=== PATIENT | male | born 1990 | race Caucasian/White ===

== ENCOUNTER 2021-09-11 20:31 | Emergency (ER) | payer OTHER, SELFPAY ==
[2021-09-11 20:40] VITALS: BP 135/80; PULSE 78; RESP 18; TEMP 37.2; O2SAT 97
--- NOTE | 2021-09-11 20:43 | DI.RAD.S_ITS ---
PROCEDURE: XR HAND RT MIN 3V INDICATIONS: pain, no known injury TECHNIQUE: 3 views of the hand(s) acquired. COMPARISON: None. FINDINGS: Bones: No acute fractures or dislocations. There is mild deformity of the 5th distal phalanx consistent sequelae of prior trauma. Carpal bones are normally aligned. No suspicious bony lesions. Soft tissues: No suspicious soft tissue calcifications. IMPRESSION: 1. No acute fracture or dislocation. Dictated by: Jaime Roberts M.D. on 09/11/2021 at 21:55 Approved by: Jaime Roberts M.D. on 09/11/2021 at 21:56
--- NOTE | 2021-09-11 22:10 | ED_ITS ---
HPI - Extremity Injury (Upper) General Chief Complaint: Extremity Injury, Upper Stated Complaint: Right hand pain Time Seen by Provider: 09/11/21 21:48 Source: patient Mode of arrival: Ambulatory History of Present Illness HPI narrative: 31-year-old male nonsmoker with a history of traumatic injury to his right hand resulting in nerve injury when he was a child presents with the chief complaint of some pain in his right wrist in the absence of any obvious injury. He works with repetitive motion of his right hand and wrist and denies any history of carpal tunnel or other. He has no numbness, tingling or weakness. His pain is worse with range of motion and improves with rest. Review of Systems Review of Systems Narrative: GENERAL: Denies chills, fatigue, malaise, fever, sweats. HEENT: Denies sinus pain, ear pain, sore throat, difficulty swallowing, dizziness. RESPIRATORY: Denies dyspnea, cough, wheezing, hemoptysis, sputum. CARDIOVASCULAR: Denies chest pain, palpitations, orthopnea, edema, GASTROINTESTINAL: Denies nausea, vomiting, abdominal pain, diarrhea, constipation, melena. : Denies dysuria, frequency, incontinence, hematuria, urinary retention. MUSCULOSKELETAL: See HPI SKIN: Denies rash, skin lesions, or other NEUROLOGIC: See HP PSYCHIATRIC: No concerning psychosocial issues. 12 point review of systems is negative except for those stated above Exam Narrative Exam Narrative: GEN: AOx3 and in mild distress EYES: Pupils are equal, round, and reactive to light and accommodation. Extraoccular muscles are intact bilaterally. There is no subconjunctival hemorrhage or exudate. CHEST: Lungs are clear to auscultation bilaterally and free of wheezes, rales, or rhonchi. Heart rate is regular rhythm, there are no murmurs, clicks, rubs, or gallops. There is no chest wall tenderness. ABD: Abdomen is soft and nontender. There is no guarding or rebound. Bowel sounds are normal in all 4 quadrants. There is no mass or organomegaly. EXT: Full painless ROM of all extremities with no loss of sensation or strength. No obvious external deformity. There is some tenderness to palpation over the dorsum and lateral aspect of hand without swelling, erythema. There is no neurovascular compromise. No worsening of symptoms with reverse Phalen's or Tinel's. SKIN: Warm, pink, and dry. No erythema or rash Initial Vital Signs Initial Vital Signs: Vital Signs Temperature 98.9 F 09/11/21 20:40 Pulse Rate 78 09/11/21 20:40 Respiratory Rate 18 09/11/21 20:40 Blood Pressure 135/80 09/11/21 20:40 Pulse Oximetry 97 09/11/21 20:40 Procedures Orthopedic Splinting/Casting Injury #1: Upper Extremity Injury Location: wrist Upper Extremity Immobilizer: volar splint Post splinting neuro exam: intact Post splinting vascular exam: intact Placed by: Nursing Course Orders Ordered: ED Orders 09/11/21 20:43 XR hand RT min 3V Stat Vital Signs Vital signs: Vital Signs - 8 hr 09/11/21 20:40 09/11/21 22:16 Temperature 98.9 F Pulse Rate 78 65 Respiratory Rate 18 Blood Pressure 135/80 132/84 Pulse Oximetry 97 95 MDM - Extremity Injury (Upper) Imaging Data Extremity x-ray #1: Radiologist's Impression: [address] [address] XRay Report Signed Patient: Donell Sorensen MR#: [id number] : 1990 Acct:[id number] Age/Sex: 31 / M Date of Service: 09/11/21 Loc: ED Accession Number: [id number] ?? Procedure: XR hand RT min 3V Ordering Provider: David Patel D.O. PROCEDURE:? XR HAND RT MIN 3V ? INDICATIONS:? pain, no known injury ? TECHNIQUE:? 3 views of the hand(s) acquired.? ? COMPARISON:? None. ? FINDINGS:? ? Bones:? No acute fractures or dislocations.? There is mild deformity of the 5th distal phalanx consistent sequelae of prior trauma.? Carpal bones are normally aligned.? No suspicious bony lesions.? ? Soft tissues:? No suspicious soft tissue calcifications.? ? IMPRESSION:? ? 1. No acute fracture or dislocation.? ? ? Dictated by: Jaime Roberts M.D. on 09/11/2021 at 21:55 ? ? Approved by: Jaime Roberts M.D. on 09/11/2021 at 21:56 ? [facility] Narrative Medical decision making narrative: Patient with lateral hand pain in the absence of known injury. There are no external manifestations of injury or infection, no swelling or erythema. There is no numbness or tingling. Patient has extensive repetitive motion at work and I suspect this is the etiology of his pain. Patient feels better after splint is placed. I talked with him about limiting overuse of his right hand and wrist at work and he states this is definitely possible over the next week. He has been given return precautions and questions have been answered to his apparent satisfaction Discharge Plan Departure Patient Disposition: Home Clinical Impression: Acute carpal tunnel syndrome Qualifiers: Laterality: right Qualified Code(s): G56.01 - Carpal tunnel syndrome, right upper limb Activity Restrictions/Additional Instructions: *You have been diagnosed with [Pain in Right wrist likely due to overuse syndr ome such as carpal tunnel ] *What to do: *Please continue to take your regular medications as directed. [ ] New medication prescriptions sent to your pharmacy: [ ] [ ] New medication written as a paper prescription [x ] No new medications given *Please follow up with your primary care provider in 2-3 days, call for an appointment. Let them know you were seen in the Emergency Department and that we ask that you be seen in follow up. We will electronically transmit a record of today's note if your PCP is in our system *If you do not have a primary care provider please contact the [facility] Resource line at [phone]. They will ask some questions about your medical history and help get you set up with a doctor in the community. *Return to Emergency Department if you should have any new, worsening or concerning symptoms, such as [fever greater than 101 F, shaking chills, worsening pain, persistent vomiting or other bothersome symptoms] Stand Alone Forms: Work Release Note
[2021-09-11 22:16] VITALS: BP 132/84; PULSE 65; O2SAT 95
== END 2021-09-11 22:22 | disposition home or self-care (01) ==
PROVIDERS: Emergency Provider Emergency Medicine
DX: G56.01 Carpal tunnel syndrome, right upper limb (principal)
CPT/HCPCS: 73130; 99283